=== PATIENT | male | born 1995 | race Caucasian/White ===

== ENCOUNTER → 2025-06-10 14:34 | Outpatient (CLI) | payer OTHER, SELFPAY ==
--- NOTE | 2025-06-10 14:40 | DI.CT.S_ITS ---
PROCEDURE: CT HAND RIGHT WITHOUT CON INDICATIONS: FRACTURE OF BASE OF 5TH METACARPAL TECHNIQUE: Noncontrast 1 mm axial sections acquired through the carpal bones, with coronal and sagittal reformats. For radiation dose reduction, the following was used: automated exposure control, adjustment of mA and/or kV according to patient size. COMPARISON: None. FINDINGS: Image quality: Excellent. Bones: Minimally displaced intra-articular fracture is seen at the 5th metacarpal base with superimposed healing changes. There is up to 1 mm step-off at the proximal 5th metacarpal articular surface. Periosteal new bone formation is seen as well as mild early callus formation. Portions of the lucent fracture line are still visualized without solid osseous bridging. Mild degenerative changes are seen at the 1st carpometacarpal joint. Mild degenerative changes at the interphalangeal joints of the fingers. Carpal bones are normally aligned. No suspicious osseous lesion. Soft tissues: Minimal soft tissue edema is seen adjacent to the fracture site. The tendons, ligaments, and articular cartilages are not well evaluated with CT. The visualized musculature is normal in bulk. IMPRESSION: Healing minimally displaced intra-articular fracture of the 5th metacarpal base. Mild callus formation without solid osseous bridging. Approved by: Emerson Sarkar M.D. on 06/10/2025 at 16:16
== END ==
PROVIDERS: Referring Provider Student in an Organized Health Care Education/Training Program; Visit Provider Student in an Organized Health Care Education/Training Program
DX: S62.316A Displaced fracture of base of fifth metacarpal bone, right hand, initial encounter for closed fracture (principal)
CPT/HCPCS: 73200

== ENCOUNTER → 2025-06-24 11:11 | Outpatient (CLI) | payer OTHER, SELFPAY | LOC: PHYS 11:13 | DX: G56.20 Lesion of ulnar nerve, unspecified upper limb (principal) | CPT/HCPCS: 95886; 95910 ==